=== PATIENT | male | born 1970 | race Caucasian/White ===

== ENCOUNTER 2016-05-06 08:24 | Emergency (ER) | payer OTHER ==
[2016-05-06 08:41] VITALS: BP 168/114; PULSE 97; TEMP 98; BMI 35.5
[2016-05-06] MEDS ORDERED: KETOROLAC TROMETHAMINE 60 MG/2 ML VIAL IM ONE (09:07)
[2016-05-06] MEDS ORDERED: KETOROLAC TROMETHAMINE 60 MG/2 ML VIAL ONE (09:12)
[2016-05-06 09:25] LABS: BASOPHIL 0.5 % (0-2.0); EOSINOPHIL 10.3 % (0-4.5); MCH 30.7 pg (25.7-33.7); MCHC 33.3 g/dl (32.0-35.9); MEAN CELL VOLUME 92.3 fl (80-96); MEAN PLT VOLUME 8.3 fl (7.5-11.1); NEUTROPHILS 64.1 % (42.8-82.8); PLATELET COUNT 260 K/MM3 (134-434); RDW 13.2 % (11.9-15.9); WHITE BLOOD COUNT 11.1 K/mm3 (4.0-10.0)
[2016-05-06 09:47] LABS: ALBUMIN 4.1 g/dl (3.4-5.0); BILIRUBIN,DIRECT 0.1 mg/dL (0.0-0.2); BILIRUBIN,TOTAL 0.5 mg/dL (0.2-1.0); TOT PROT 7.2 g/dl (6.4-8.2); URIC ACID 6.7 mg/dL (2.6-7.2)
--- NOTE | 2016-05-06 09:47 | PDOC ---
History of Present Illness - General Chief Complaint: Injury Stated Complaint: SWOLLEN RT FOOT/ PAIN Time Seen by Provider: 05/06/16 08:46 History Source: Patient Exam Limitations: No Limitations - History of Present Illness Initial Comments: 05/06/16 09:44 CC reoccurring pain to right great toe ; much wosre x 1 da; no trauma, but stands on foot alot Occurred: reports: yesterday Severity: Yes: severe Lower Extremity Pain Location: right: 1st toe Past History - Travel Traveled outside of the country in the last 30 days: No Close contact w/someone who was outside of country & ill: No - Past Medical History Allergies/Adverse Reactions: Allergies Allergy/AdvReac Type Severity Reaction Status Date / Time No Known Allergies Allergy Verified 05/06/16 08:35 Home Medications: Ambulatory Orders Unobtainable [Unobtainable] 05/06/16 Asthma: No Cancer: No DVT: No HTN: Yes - Psycho/Social/Smoking Cessation Hx Anxiety: No Suicidal Ideation: No Smoking History: Never smoked Have you smoked in the past 12 months: No Information on smoking cessation initiated: No Hx Alcohol Use: No Drug/Substance Use Hx: No Substance Use Type: None Review of Systems - Review of Systems Constitutional: No: Symptoms Reported, Chills, Fever, Malaise HEENTM: No: Symptoms Reported Respiratory: No: Symptoms reported, Cough Cardiac (ROS): No: Symptoms Reported ABD/GI: No: Symptoms Reported Musculoskeletal: Yes: Joint Pain, Joint Swelling, Joint Stiffness Neurological: No: Symptoms reported, Numbness, Paresthesia, Tingling *Physical Exam - Vital Signs Last Vital Signs Temp Pulse Resp BP Pulse Ox 98.0 F 97 H 18 168/114 100 05/06/16 08:35 05/06/16 08:35 05/06/16 08:35 05/06/16 08:35 05/06/16 08:35 - Physical Exam General Appearance: Yes: Appropriately Dressed. No: Apparent Distress HEENT: positive: TMs Normal, Pharynx Normal Neck: positive: Supple. negative: Tender, Rigid Respiratory/Chest: positive: Lungs Clear, Normal Breath Sounds. negative: Accessory Muscle Use Musculoskeletal: positive: Other (mild erythema about great toe on right with slight STS; very tender, limited ROM) ED Treatment Course - LABORATORY CBC & Chemistry Diagram: 05/06/16 09:08 05/06/16 09:08 - ADDITIONAL ORDERS Additional order review: 05/06/16 09:08 RBC 4.94 MCV 92.3 MCHC 33.3 RDW 13.2 MPV 8.3 Neutrophils % 64.1 Lymphocytes % 18.8 Monocytes % 6.3 Eosinophils % 10.3 H Basophils % 0.5 - RADIOLOGY Radiology Studies Ordered: Category Date Time Status TOE(S) RIGHT [RAD] Stat Radiology 05/06/16 09:05 Taken - Medications Given in the ED: ED Medications Discontinued Medications Generic Name Dose Route Start Last Admin Trade Name Estuardoq PRN Reason Stop Dose Admin Ketorolac Tromethamine 60 mg 05/06/16 09:07 05/06/16 09:18 Toradol Injection - IM 05/06/16 09:08 60 mg ONCE ONE Administration Medical Decision Making - Medical Decision Making 05/06/16 11:18 no fracture on xray; ? FB read by me, pt symptoms do not correlate to area; will call pt with results will refer to podiatry *DC/Admit/Observation/Transfer Diagnosis at time of Disposition: Acute gout Qualifiers: Gout site: toe Gout etiology: unspecified cause Laterality: right Qualified Code(s): M10.9 - Gout, unspecified - Discharge Dispostion Disposition: HOME Condition at time of disposition: Stable Admit: No - Referrals Referrals: Miriam Lewis NP [Primary Care Provider] - Sadia Aguilar MD [Staff Physician] - - Post Discharge Activity Work/School Note: Back to Work
== END 2016-05-06 11:26 | disposition home or self-care (01) ==
LOC: JERFT 08:24
PROC: 3E0333Z Introduction of Anti-inflammatory into Peripheral Vein, Percutaneous Approach (ICD-10-PCS; principal; 2016-05-06)
DX: M10.9 Gout, unspecified (principal); I10 Essential (primary) hypertension
CPT/HCPCS: 36415; 73660-TC; 80048; 80076; 84550; 85025; 96372; 99282-25